=== PATIENT | male | born 1965 | race Caucasian/White ===

== ENCOUNTER 2017-07-19 04:59 | Emergency (ER) | payer OTHER ==
--- NOTE | 2017-07-19 05:16 | PDOC ---
Attending Attestation - Resident Resident Name: Davis Hussein - ED Attending Attestation I have performed the following: The case was reviewed & discussed with the resident - HPI HPI: 07/19/17 06:13 Pt comes with near syncope. He got up to go to the bathroom. When he got back to the bed he felt like he was going to pass out. - Physicial Exam PE: 07/19/17 06:14 Agree with resident exam 07/19/17 06:25 Pt has a fleshy mass on the right nape of his neck. It's tougher than what I would expect a lipoma to feel like. Pt will get imaging of the neck. - Medical Decision Making 07/19/17 06:14 EKG is normal. Head CT scan normal; CXR normal. VSS. Pt is afebrile. We are awaiting lab results. 07/19/17 23:10 Signed out to the day team.
[2017-07-19 05:29] VITALS: TEMP 97.8; BMI 29.0
--- NOTE | 2017-07-19 05:52 | PDOC ---
History of Present Illness - General Chief Complaint: Lightheaded Stated Complaint: PASS OUT Time Seen by Provider: 07/19/17 05:13 History Source: Patient Exam Limitations: No Limitations - History of Present Illness Initial Comments: 07/19/17 05:51 The patient is a 51M with a PMH of HLD (has not seen his PCP - Dr. Armijo - in a "few" years) presents to our ED after having a near syncopal episode. The patient states that he woke up to urinate around 0115 today and felt lightheaded as he was urinating. He walked back to his bed, and states that he was fighting off the sensation to syncopize. During this same time, he felt chest pressure and some mild SOB with nausea but did not vomit and did not syncopize. He went to [facility] ED but stated that the wait time was too long, and decided to come to our facility. He denies any current CP, SOB, fever, chills, numbness, tingling, weakness, smoking history. He does not take any medications on a daily basis. Past History - Past Medical History Allergies/Adverse Reactions: Allergies Allergy/AdvReac Type Severity Reaction Status Date / Time No Known Allergies Allergy Verified 07/19/17 05:25 Home Medications: Ambulatory Orders NK [No Known Home Medication] 07/19/17 COPD: No - Suicide/Smoking/Psychosocial Hx Smoking History: Never smoked Have you smoked in the past 12 months: No Information on smoking cessation initiated: No Hx Alcohol Use: No Drug/Substance Use Hx: No Substance Use Type: None Review of Systems - Review of Systems Able to Perform ROS?: Yes Comments:: 07/19/17 06:01 GENERAL/CONSTITUTIONAL: No fever or chills. No weakness. HEAD, EYES, EARS, NOSE AND THROAT: No change in vision. No ear pain or discharge. No sore throat. GASTROINTESTINAL: No nausea, vomiting, diarrhea, constipation, or abdominal pain. GENITOURINARY: No dysuria, frequency, hematuria, or change in urination. CARDIOVASCULAR: Positive for resolved CP and SOB. No current chest pain, palpitations, or lightheadedness. RESPIRATORY: No cough, wheezing, shortness of breath, or hemoptysis. MUSCULOSKELETAL: No joint or muscle swelling or pain. No neck or back pain. SKIN: No rash or lesions. NEUROLOGIC: No headache, numbness, tingling, weakness, loss of consciousness, or change in strength/sensation. ENDOCRINE: No increased thirst. No abnormal weight change. HEMATOLOGIC/LYMPHATIC: No anemia, easy bleeding, or history of blood clots. ALLERGIC/IMMUNOLOGIC: No hives or skin allergy. Is the patient limited Amharic proficient: No *Physical Exam - Vital Signs Last Vital Signs Temp Pulse Resp BP Pulse Ox 97.8 F 79 18 129/91 97 07/19/17 05:26 07/19/17 05:26 07/19/17 05:26 07/19/17 05:26 07/19/17 05:26 - Physical Exam Comments: 07/19/17 06:02 GENERAL: Well developed, well nourished. Awake and alert. No acute distress. HEENT: Normocephalic, atraumatic. Hearing grossly normal. Moist mucous membranes. PERRLA, EOMI. No conjunctival pallor. Sclera are non-icteric. Oropharynx is clear. Fat pad located along posterior neck line, 1.5cm in height and 5 cm in length. Nonerythematous, nonpuruluent, not warm to touch. NECK: Supple. Full ROM. No JVD. Carotid pulses 2+ and symmetric, without bruits. No thyromegaly. No lymphadenopathy. CARDIOVASCULAR: Regular rate and rhythm. No murmurs, rubs, or gallops. PULMONARY: No evidence of respiratory distress. Lungs clear to auscultation bilaterally. No wheezing, rales or rhonchi. ABDOMINAL: Soft. Non-tender. Non-distended. No rebound or guarding. No organomegaly. Normoactive bowel sounds. MUSCULOSKELETAL: Normal range of motion at all joints. No bony deformities or tenderness. EXTREMITIES: No cyanosis. No clubbing. No edema. No calf tenderness. SKIN: Warm and dry. Normal capillary refill. No rashes. No jaundice. NEUROLOGICAL: Alert, awake, appropriate. Cranial nerves 2-12 intact. No deficits to light touch and temperature in face, upper extremities and lower extremities. No motor deficits in the in face, upper extremities and lower extremities. Finger to nose normal bilaterally. Normal speech. Gait is normal without ataxia. PSYCHIATRIC: Cooperative. Good eye contact. Appropriate mood and affect. Heart Score/ECG Review #1 ECG reviewed & interpreted by me at: 06:16 General ECG Interpretation: Sinus Rhythm, Normal Rate, Normal Intervals, No acute ischemic changes Compared to previous ECG there are: No significant change ED Treatment Course - RADIOLOGY Radiology Studies Ordered: Category Date Time Status CHEST PA & LAT [RAD] Stat Radiology 07/19/17 05:36 Ordered Medical Decision Making - Medical Decision Making 07/19/17 06:17 The patient is a 51M with a PMH of HLD who presents to the ED after having a near syncopal episode. On my differential is a cardiac cause of this episode, as well as neurologic causes. Prelim reading of head CT and CXR are negative. Pending labs. Dispo: obs for cardiac workup and/or more neurologic testing (MRI , etc). *DC/Admit/Observation/Transfer - Referrals Referrals: Marissa Rhodes MD [Primary Care Provider] - - Patient Instructions - Post Discharge Activity
[2017-07-19 06:04] LABS: BASO % 0.8 % (0-2.0); EOS % 1.9 % (0-4.5); HEMATOCRIT 42.8 % (35.4-49); HEMOGLOBIN 14.8 GM/dL (11.7-16.9); LYMPH % 24.7 % (8-40); MCH 30.6 pg (25.7-33.7); MCHC 34.5 g/dl (32.0-35.9); MEAN CELL VOLUME 88.8 fl (80-96); MEAN PLT VOLUME 7.5 fl (7.5-11.1); MONO % 8.5 % (3.8-10.2); NEUT % 64.1 % (42.8-82.8); PLATELET COUNT 273 K/MM3 (134-434); RBC 4.82 M/mm3 (4.00-5.60); RDW 12.6 % (11.9-15.9); WHITE BLOOD COUNT 9.6 K/mm3 (4.0-10.0)
--- NOTE | 2017-07-19 07:08 | PDOC ---
*Physical Exam - Vital Signs Last Vital Signs Temp Pulse Resp BP Pulse Ox 97.8 F 79 18 129/91 97 07/19/17 05:26 07/19/17 05:26 07/19/17 05:26 07/19/17 05:26 07/19/17 05:26 - Physical Exam Comments: 07/19/17 08:01 GENERAL: Awake, alert, and fully oriented, in no acute distress HEAD: No signs of trauma, normocephalic, atraumatic EYES: PERRLA, EOMI, sclera anicteric, conjunctiva clear ENT: Auricles normal inspection, hearing grossly normal, nares patent, oropharynx clear without exudates. Moist mucosa LUNGS: No distress, speaks full sentences, clear to auscultation bilaterally HEART: Regular rate and rhythm, normal S1 and S2, no murmurs, rubs or gallops, peripheral pulses normal and equal bilaterally. EXTREMITIES: Normal inspection, Normal range of motion, no edema. No clubbing or cyanosis. NEUROLOGICAL: Cranial nerves II through XII grossly intact. Normal speech, no focal sensorimotor deficits ED Treatment Course - LABORATORY CBC & Chemistry Diagram: 07/19/17 05:50 07/19/17 05:50 - ADDITIONAL ORDERS Additional order review: Laboratory Results 07/19/17 06:00 POC Glucometer 101.96195 07/19/17 07/19/17 06:00 05:50 RBC 4.82 MCV 88.8 MCHC 34.5 RDW 12.6 MPV 7.5 Neutrophils % 64.1 Lymphocytes % 24.7 Monocytes % 8.5 Eosinophils % 1.9 Basophils % 0.8 POC Glucometer 101.01779 Medical Decision Making - Medical Decision Making 07/19/17 07:[address] Florian. Patient is 51M with near syncope. EKG normal. CXR normal. CT head shows no acute pathology. CT neck soft tissues and trop at 9am pending. 07/19/17 10:23 Laboratory Tests 07/19/17 07/19/17 07/19/17 05:50 05:50 08:58 WBC 9.6 D Hgb 14.8 Hct 42.8 Plt Count 273 Troponin I < 0.02 < 0.02 CBC norrmal. Trop neg x2. CMP unremarkable. Neck CT read pending. 07/19/17 10:58 CT neck negative. Will discharge home with return precautions and PCP follow up. *DC/Admit/Observation/Transfer Diagnosis at time of Disposition: Near syncope - Discharge Dispostion Disposition: HOME Condition at time of disposition: Good Admit: No - Referrals Referrals: Marissa Rhodes MD [Primary Care Provider] - Tor Roque MD [Staff Physician] - - Patient Instructions Printed Discharge Instructions: DI for Syncope in Adults (Fainting) Additional Instructions: Please return if you have any new, worsening or concerning symptoms. Please follow up with your primary care physician this week. A referral for a new PCP has been included in your paperwork. Please feel free to follow up with your old or new PCP as you feel fit. - Post Discharge Activity
[2017-07-19 07:12] LABS: ALBUMIN 3.8 g/dl (3.4-5.0); ALK PHOS 75 U/L (45-117); ANION GAP 5 (8-16); BILIRUBIN,TOTAL 0.3 mg/dL (0.2-1.0); BLOOD UREA NITROGEN 17 mg/dL (7-18); CALCIUM 8.5 mg/dL (8.5-10.1); CHLORIDE 105 mmol/L (98-107); CO2 28 mmol/L (21-32); GLUCOSE,RANDOM 103 mg/dL (74-106); LIPASE 112 U/L (73-393); SGOT/AST 18 U/L (15-37); SGPT/ALT 41 U/L (12-78); SODIUM 138 mmol/L (136-145); TOT PROT 7.1 g/dl (6.4-8.2)
--- NOTE | 2017-07-19 10:33 | PDOC ---
*Physical Exam - Vital Signs Last Vital Signs Temp Pulse Resp BP Pulse Ox 97.8 F 66 18 148/77 97 07/19/17 05:26 07/19/17 07:34 07/19/17 07:34 07/19/17 07:34 07/19/17 07:34 - Physical Exam Comments: 07/19/17 10:31 sitting up. tolerated po aaox3, nad no symptoms at this time ED Treatment Course - LABORATORY CBC & Chemistry Diagram: 07/19/17 05:50 07/19/17 05:50 - ADDITIONAL ORDERS Additional order review: Laboratory Results 07/19/17 07/19/17 07/19/17 08:58 06:00 05:50 Sodium 138 Potassium 4.0 Chloride 105 Carbon Dioxide 28 Anion Gap 5 L BUN 17 D Creatinine 1.0 D Creat Clearance w eGFR > 60 POC Glucometer 101.85303 Random Glucose 103 Calcium 8.5 Total Bilirubin 0.3 D AST 18 D ALT 41 Alkaline Phosphatase 75 Creatine Kinase 137 146 Troponin I < 0.02 < 0.02 Total Protein 7.1 Albumin 3.8 Lipase 112 07/19/17 07/19/17 06:00 05:50 RBC 4.82 MCV 88.8 MCHC 34.5 RDW 12.6 MPV 7.5 Neutrophils % 64.1 Lymphocytes % 24.7 Monocytes % 8.5 Eosinophils % 1.9 Basophils % 0.8 POC Glucometer 101.28806 Medical Decision Making - Medical Decision Making 07/19/17 10:31 a/p: 51yo male signed out from the prior physician pending ct soft tissue neck and repeat trop -no cp/sob -no longer feels lightheaded -no neck pain 07/19/17 10:32 repeat trop negative pending ct soft tissue neck pt feeling better updated on lab results when ct soft tissue neck results will be stable for d/c to home and oupt followup 07/19/17 11:02 ct without acute findings stable to d/c to home *DC/Admit/Observation/Transfer Diagnosis at time of Disposition: Near syncope - Discharge Dispostion Disposition: HOME Condition at time of disposition: Good Admit: No - Referrals Referrals: Tor Roque MD [Staff Physician] - Marissa Rhodes MD [Primary Care Provider] - - Patient Instructions Printed Discharge Instructions: DI for Syncope in Adults (Fainting) Additional Instructions: Please return if you have any new, worsening or concerning symptoms. Please follow up with your primary care physician this week. A referral for a new PCP has been included in your paperwork. Please feel free to follow up with your old or new PCP as you feel fit. - Post Discharge Activity
[2017-07-19 11:19] VITALS: BP 120/74; PULSE 80
--- NOTE | 2017-07-20 10:31 | PDOC ---
Patient Follow-up (Call Back) - Post ED Follow - Up Condition at time of discharge: Good Disposition at time of original discharge: HOME Reason for Call Back: Radiology (Which was called by radiology to discuss patient's CT results of neck there appears to be a lesion at the base of the tongue, I have called patient to discuss he states that he had reconstructive surgery performed for excessive snoring and he will follow up with ENT doctor for further evaluation.)
--- NOTE | 2017-07-20 11:35 | EKG ---
Test Reason : Blood Pressure : / mmHG Vent. Rate : 068 BPM Atrial Rate : 068 BPM P-R Int : 170 ms QRS Dur : 084 ms QT Int : 386 ms P-R-T Axes : 025 003 026 degrees QTc Int : 410 ms NORMAL SINUS RHYTHM NORMAL ECG NO PREVIOUS ECGS AVAILABLE Confirmed by SÁNCHEZ KOO MD ([id number]) on 07/20/2017 11:34:42 AM Referred By: Confirmed By:SÁNCHEZ KOO MD
== END 2017-07-19 11:20 | disposition home or self-care (01) ==
LOC: JER 04:59
DX: R55 Syncope and collapse (principal); R22.1 Localized swelling, mass and lump, neck
CPT/HCPCS: 36415; 70450-TC; 70491-TC; 71046-TC; 80053; 82550; 82962; 83690; 84484; 85025; 93005; 93010; 99284-25